=== PATIENT | female | born 1960 | race Caucasian/White ===

== ENCOUNTER 2017-10-15 20:57 | Inpatient (IN) | payer BC ==
[2017-10-15] MEDS ORDERED: NS 0.9% 1000 ML* 1,000 ML IV ONE (21:28)
--- NOTE | 2017-10-15 22:10 | RAD ---
INDICATION: Wound left lower leg. TECHNIQUE: 2 views of the left lower leg were obtained. FINDINGS: There is lateral soft tissue swelling. The bones are normal alignment. No fracture or repeat foreign body is seen. IMPRESSION: NO EVIDENCE OF FRACTURE.
[2017-10-15] MEDS ORDERED: Piperacillin/Tazobac ADVAN(*) 3.375 GM in NS 0.9% 100 ML* 100 ML IVPB ONE (22:19)
[2017-10-15 22:42] LABS: ABS Basophils 0.1 10^3/ul (0-0.2); ABS Eosinophils 0.1 10^3/ul (0-0.6); ABS Lymphocytes 1.4 10^3/ul (1.0-4.8); ABS Monocytes 0.6 10^3/ul (0-0.8); ABS Neutrophils 6.7 10^3/ul (1.5-7.7); ABS Nucleated RBC 0 10^3/ul; Eosinophil % 1.3 % (0-6); Hematocrit 39 % (35-47); Hemoglobin 13.3 g/dl (12.0-16.0); Lymphocyte % 15.5 % (25-47); Mean Corpuscular HGB Conc 34 g/dl (31-36); Mean Corpuscular Hemoglobin 32 pg (27-31); Mean Corpuscular Volume 93 fL (80-97); Mean Platelet Volume 8.3 um3 (7.4-10.4); Nucleated Red Blood Cells % 0; Platelet Count 172 10^3/ul (150-450); Red Cell Distribution Width 13 % (10.5-15)
[2017-10-15 23:02] LABS: EGFR Non-African American 112.4 (>60)
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
[2017-10-16] MEDS ORDERED: traMADol TAB* 50 MG PO PRN (01:32)
--- NOTE | 2017-10-16 01:44 | PN ---
Progress Note - Progress Note Date of Service: 10/16/17 Note: 10/16/17 Image of cellulitis:
[2017-10-16] MEDS: NS 0.9% 1000 ML* 1,000 ML IV SCH ×3 (02:37→23:19)
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
[2017-10-16] MEDS: Acetaminophen TAB* 325 MG PO PRN ×3 (06:32→19:24)
[2017-10-16] MEDS ORDERED: Piperacillin/Tazobac ADVAN(*) 3.375 GM in NS 0.9% 100 ML* 100 ML IVPB ONE (10:00)
[2017-10-16] MEDS ORDERED: Zosyn per Pharmacy* NOTE FOLLOW UP SCH (10:00)
[2017-10-16] MEDS: Cholecalciferol TAB* 1000 UNITS PO SCH (10:05)
[2017-10-16] MEDS: Ibuprofen TAB* 600 MG PO PRN ×3 (10:05→21:46)
--- NOTE | 2017-10-16 12:07 | RAD ---
INDICATION: Left lower extremity swelling status post dog bite evaluate for DVT. COMPARISON: There are no prior studies available for comparison. TECHNIQUE: Multiple real-time, color flow and Doppler tracings of the left lower extremity were obtained. FINDINGS: The common femoral, femoral, profunda femoral and popliteal veins all demonstrate normal compressibility, augmentation with compression and phasic response with respiration. The posterior tibial and peroneal veins demonstrate normal compressibility and augmentation with compression. IMPRESSION: NO EVIDENCE FOR DEEP VENOUS THROMBOSIS.
--- NOTE | 2017-10-16 12:10 | RAD ---
INDICATION: Dog bite left calf evaluate for abscess. COMPARISON: There are no prior studies available for comparison. TECHNIQUE: Multiple real-time images of the left calf were obtained. FINDINGS: There are 2 complex heterogeneous collections in the posterior calf measuring 2.0 x 3.2 x 1.2 and 2.1 x 2.8 x 0.7 cm each. IMPRESSION: THERE ARE 2 COMPLEX FLUID COLLECTIONS PRESENT IN THE POSTERIOR CALF MOST CONSISTENT WITH EITHER HEMATOMAS OR ABSCESSES.
[2017-10-16] MEDS: ZOSYN 3.375 GM Q8H per EXTENDED INFUSION IVPB SCH ×4 (13:38→21:47)
--- NOTE | 2017-10-16 14:01 | PN ---
Hospitalist Progress Note Date of Service: 10/16/17 HOSPITALIST ADDENDUM Patient seen and examined at bedside. Care reviewed and d/w Alida Ruby RN. She feels a little better today. Pain is controlled with Tylenol, but medication wears off before next dose. She thinks the erythema is less intense, but edema is unchanged. Received Td at her PCP's office; dog is a known dog and vaccinated. [facility] notified and following. Will continue Zosyn, add Ibuprofen for pain control. LE doppler was negative for DVT and US showed 2 small fluid collections - hematomas vs abscesses - Surgery consult requested.
[2017-10-17] MEDS: Acetaminophen TAB* 325 MG PO PRN ×2 (03:34→15:12)
[2017-10-17 06:19] LABS: ABS Basophils 0.1 10^3/ul (0-0.2); ABS Eosinophils 0.1 10^3/ul (0-0.6); ABS Lymphocytes 1.2 10^3/ul (1.0-4.8); ABS Monocytes 0.4 10^3/ul (0-0.8); ABS Neutrophils 5.1 10^3/ul (1.5-7.7); ABS Nucleated RBC 0 10^3/ul; Eosinophil % 1.8 % (0-6); Hematocrit 37 % (35-47); Hemoglobin 12.7 g/dl (12.0-16.0); Lymphocyte % 17.5 % (25-47); Mean Corpuscular HGB Conc 35 g/dl (31-36); Mean Corpuscular Hemoglobin 32 pg (27-31); Mean Corpuscular Volume 93 fL (80-97); Mean Platelet Volume 8.2 um3 (7.4-10.4); Nucleated Red Blood Cells % 0; Platelet Count 152 10^3/ul (150-450); Red Blood Count 3.98 10^6/ul (4.0-5.4); Red Cell Distribution Width 13 % (10.5-15)
[2017-10-17 06:33] LABS: EGFR Non-African American 119.8 (>60)
[2017-10-17] MEDS: ZOSYN 3.375 GM Q8H per EXTENDED INFUSION IVPB SCH ×4 (06:35→13:56)
[2017-10-17] MEDS: Cholecalciferol TAB* 1000 UNITS PO SCH (09:24)
[2017-10-17] MEDS: Ibuprofen TAB* 600 MG PO PRN (09:24)
[2017-10-17 12:43] VITALS: BP 154/65
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
--- NOTE | 2017-10-17 16:57 | PN ---
Progress Note - Progress Note Date of Service: 10/17/17 Note: Surgery Note: S: We were asked to see patient prior to d/c home on po abx. Patient seen with and examined by Dr. Zepeda. O: No sig change in exam vs that of Dr. Castro this a.m. (see separate consult) : small amts of bloody drainage on dsg; no sig erythema; no sig tenderness; areas of evolving ecchymosis as well as central area that may be pre-necrotic, though this is still evolving. A/P: dog bite Left LE; home today per hospitalist on Augmentin; office f/u w/ Dr. Zepeda on Tue. Advised rest and elevation.
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
== END 2017-10-17 19:38 | disposition home or self-care (01) | DRG 383 ==
LOC: ED 20:57 → MED 10-16 01:32 → OBSVTOIN 10-16 14:01
PROVIDERS: ADMIT Hospitalist; ATTEND Internal Medicine
DX: L03.116 Cellulitis of left lower limb (principal); B96.89 Other specified bacterial agents as the cause of diseases classified elsewhere; S80.12XA Contusion of left lower leg, initial encounter; W54.0XXA Bitten by dog, initial encounter; Y93.55 Activity, bike riding; Y92.9 Unspecified place or not applicable; Z79.899 Other long term (current) drug therapy
CPT/HCPCS: 36415; 80048; 80053; 85025; 86140; 87040; 87070; 87076; 87077; 87205; 99285; A9270-GY; J2543